=== PATIENT | female | born 1995 | race African-American/Black ===

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

== ENCOUNTER 2018-07-20 20:34 | Emergency (ER) | payer BC, MEDICAID ==
[2018-07-20 20:49] VITALS: BP 130/76
--- NOTE | 2018-07-21 00:46 | ER Document Report ---
ED General - General Chief Complaint: Fever Stated Complaint: POSSIBLE FEVER,NAUSEA Time Seen by Provider: 07/21/18 00:05 Primary Care Provider: CHENTE DAS DO [Primary Care Provider] - Follow up as needed Mode of Arrival: Ambulatory Information source: Patient TRAVEL OUTSIDE OF THE [place] IN LAST 30 DAYS: No - HPI Patient complains to provider of: Nasal congestion, weak, sore throat, fever Onset: Yesterday Onset/Duration: Sudden Quality of pain: No pain Severity: None Associated symptoms: Fever Exacerbated by: Denies Relieved by: Denies Similar symptoms previously: No Recently seen / treated by doctor: No Notes: 23-year-old -Italian female with onset of sore throat, nasal congestion, weakness, subjective fevers, nauseousness started yesterday. Daughter is also sick. No vomiting or diarrhea. - Related Data Allergies/Adverse Reactions: No Known Allergies Allergy (Verified 07/20/18 20:38) Past Medical History - General Information source: Patient - Social History Smoking Status: Never Smoker Chew tobacco use (# tins/day): No Drug Abuse: None Family History: Reviewed & Not Pertinent Patient has suicidal ideation: No Patient has homicidal ideation: No Renal/ Medical History: Denies: Hx Peritoneal Dialysis - Immunizations Hx Diphtheria, Pertussis, Tetanus Vaccination: Yes Review of Systems - Review of Systems Notes: Constitutional: Positive subjective fevers. No chills. EENT: No eye redness. No eye pain. No ear pain. No sore throat. Cardiovascular: No chest pain. No palpitations. Respiratory: No cough. No shortness of breath. No respiratory distress. Gastrointestinal: No abdominal pain. Positive for nausea negative for vomiting and diarrhea Genitourinary: Atraumatic. No lesions. No pain. No discharge. Musculoskeletal: Atraumatic. No swelling. No deformities. Skin: No rash or lesions. Lymphatic: No swollen lymph nodes. Neurologic: No headache. No syncope. Psychiatric: No suicidal or homicidal ideation. Physical Exam - Vital signs Vitals: Temp Pulse Resp BP Pulse Ox 98.8 F 113 H 17 130/76 H 99 07/20/18 20:48 07/20/18 20:48 07/20/18 20:48 07/20/18 20:48 07/20/18 20:48 - Notes Notes: General: Well-developed, well-nourished. In no acute distress. Non-toxic appearing. Cardiac: Well-perfused. Regular rate and rhythm. No murmurs, rubs, or gallops. Pulmonary: No respiratory distress. No cyanosis. Bilateral lung fiels are clear to auscultation. Abdominal: Non-distended. Non-rigid. Bowels sounds are present in all four quadrants. No guarding or rebound. HEENT: Head is atraumatic. Conjunctivae not reddened. No tearing. PERRL. EOMI. Orbits atraumatic. No periorbital swelling or erythema. Oropharynx is 1+ injected without exudates Neck: Supple. No adenopathy. No meningismus. Dermatologic: Warm with good turgor. No rash. Atraumatic. Chest: Atraumatic. No chest wall tenderness to palpation. Musculoskeletal: Moves all extremities well. No range of motion deficits. no muscular or joint tenderness. No paraspinal muscle tenderness. no midline spinal tenderness or step-off. Genitourinary: Examination deferred Neurologic: No gross neurologic deficits. Psychiatric: Normal mood. Course - Re-evaluation Re-evalutation: 07/21/18 00:45 Probable URI we will check a strep and a flu 07/21/18 01:31 Fluid strep are negative. Will discharge home with URI instructions. Also prescription for Bromfed-DM - Vital Signs Vital signs: Temp Pulse Resp BP Pulse Ox 98.8 F 113 H 17 130/76 H 99 07/20/18 20:48 07/20/18 20:48 07/20/18 20:48 07/20/18 20:48 07/20/18 20:48 Discharge - Discharge Clinical Impression: Upper respiratory infection Qualifiers: URI type: unspecified URI Qualified Code(s): J06.9 - Acute upper respiratory infection, unspecified Condition: Good Disposition: HOME, SELF-CARE Instructions: Upper Respiratory Illness ([facility]) Prescriptions: D-Methorphan Hb/P-Epd HCl/Bpm [Bromfed-DM Cough Syrup] 5 ml PO Q4HP PRN #120 ml PRN Reason: Referrals: CHENTE DAS DO [Primary Care Provider] - Follow up in 3-5 days
[2018-07-21 01:18] LABS: A TYPE INFLUENZA AG NEGATIVE (NEGATIVE); B INFLUENZA AG NEGATIVE (NEGATIVE)
== END 2018-07-21 01:49 | disposition home or self-care (01) ==
LOC: ER 20:34
DX: J06.9 Acute upper respiratory infection, unspecified (principal); R09.81 Nasal congestion; R53.1 Weakness; J02.9 Acute pharyngitis, unspecified; R11.0 Nausea
CPT/HCPCS: 87070; 87804; 87880; 99283

== ENCOUNTER 2018-12-04 16:56 | Emergency (ER) | payer BC ==
--- NOTE | 2018-12-04 18:36 | ER Document Report ---
ED Medical Screen (RME) - General Chief Complaint: Headache >24 hrs old Stated Complaint: HEADACHE Time Seen by Provider: 12/04/18 18:28 Primary Care Provider: CHENTE DAS DO [Primary Care Provider] - Follow up as needed Mode of Arrival: Ambulatory Information source: Patient Notes: 23-year-old female presented to ED for complaint of headaches for as long as she can remember. She states she has sharp pains in either the front of the back of her head almost daily sometimes every other day. She states she is on control that she does not have. Is except for maybe 1 day of spotting a month. She states she takes either ibuprofen or Excedrin for her headaches. She states sometimes she has worse headaches when she is on a lot of phone calls. 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 She states she does not smoke but she does drink about monthly. She states she is never followed up with a neurologist for her headaches. I offered to treat her with Compazine Benadryl and Toradol but she stated no she wants a more thorough exam and to find out why she is having these headaches. Patient is alert oriented respirations regular and unlabored no obvi ous neurological deficits. She is speaking in full sentences. I have greeted and performed a rapid initial assessment of this patient. A comprehensive ED assessment and evaluation of the patient, analysis of test results and completion of medical decision making process will be conducted by an additional ED providers. Dictation of this chart was performed using voice recognition software; therefore, there may be some unintended grammatical errors. TRAVEL OUTSIDE OF THE [place] IN LAST 30 DAYS: No - Related Data Allergies/Adverse Reactions: No Known Allergies Allergy (Verified 12/04/18 17:13) Past Medical History Renal/ Medical History: Denies: Hx Peritoneal Dialysis - Immunizations Hx Diphtheria, Pertussis, Tetanus Vaccination: Yes Physical Exam - Vital signs Vitals: Temp Pulse Resp BP Pulse Ox 98.1 F 66 16 115/78 99 12/04/18 18:00 12/04/18 18:00 12/04/18 18:00 12/04/18 18:00 12/04/18 18:00 Course - Vital Signs Vital signs: Temp Pulse Resp BP Pulse Ox 98.1 F 66 16 115/78 99 12/04/18 18:00 12/04/18 18:00 12/04/18 18:00 12/04/18 18:00 12/04/18 18:00 Doctor's Discharge - Discharge Referrals: CHENTE DAS DO [Primary Care Provider] - Follow up as needed
[2018-12-04 19:05] LABS: APPEARANCE,URINE SLIGHTLY-CLOUDY; BILIRUBIN,URINE NEGATIVE (NEGATIVE); COLOR,URINE YELLOW; GLUCOSE, URINE NEGATIVE (NEGATIVE); KETONES,URINE NEGATIVE (NEGATIVE); LEUKOCYTE ESTERASE,URINE NEGATIVE (NEGATIVE); NITRITE,URINE NEGATIVE (NEGATIVE); PROTEIN,URINE NEGATIVE (NEGATIVE); URINE SPECIFIC GRAVITY 1.024
--- NOTE | 2018-12-04 21:51 | ER Document Report ---
ED Headache - General Chief Complaint: Headache >24 hrs old Stated Complaint: HEADACHE Time Seen by Provider: 12/04/18 18:28 Primary Care Provider: RADHA HERRERA MD [ACTIVE STAFF] - Follow up as needed Mode of Arrival: Ambulatory Notes: Patient is a 23-year-old female that comes to the emergency department for chief complaint of frequent headaches. She states that she was sent home from work because of a headache that she developed, she states that it felt like a sharp pain and a band over the front of her head. She states she also has tightness in her neck. She states she has headaches like this frequently, they do go away with ibuprofen or Excedrin, she states she just wants to be checked out. She denies photophobia, phonophobia, focal numbness or weakness, or any particular h eadache at this time. She denies , she denies any daily medications, she denies smoking, recreational drugs, or any diagnosed medical problems. TRAVEL OUTSIDE OF THE [place] IN LAST 30 DAYS: No - Related Data Allergies/Adverse Reactions: No Known Allergies Allergy (Verified 12/04/18 17:13) Past Medical History - General Information source: Patient - Social History Smoking Status: Never Smoker Frequency of alcohol use: Occasional Drug Abuse: None Lives with: Family Family History: Reviewed & Not Pertinent Patient has suicidal ideation: No Patient has homicidal ideation: No Renal/ Medical History: Denies: Hx Peritoneal Dialysis Surgical Hx: Negative - Immunizations Hx Diphtheria, Pertussis, Tetanus Vaccination: Yes Review of Systems - Review of Systems Constitutional: No symptoms reported EENT: No symptoms reported Cardiovascular: No symptoms reported Respiratory: No symptoms reported Gastrointestinal: No symptoms reported Genitourinary: No symptoms reported Female Genitourinary: No symptoms reported Musculoskeletal: See HPI Skin: No symptoms reported Hematologic/Lymphatic: No symptoms reported Neurological/Psychological: See HPI Physical Exam - Vital signs Vitals: Temp Pulse Resp BP Pulse Ox 98.1 F 66 16 115/78 99 12/04/18 18:00 12/04/18 18:00 12/04/18 18:00 12/04/18 18:00 12/04/18 18:00 - Notes Notes: GENERAL: Alert, interacts well. No acute distress. HEAD: Normocephalic, atraumatic. EYES: Pupils equal, round, and reactive to light. Extraocular movements intact. ENT: Oral mucosa moist, tongue midline. Oropharynx unremarkable. Airway patent. NECK: Full range of motion. Supple. Trachea midline. LUNGS: Clear to auscultation bilaterally, no wheezes, rales, or rhonchi. No respiratory distress. HEART: Regular rate and rhythm. No murmur ABDOMEN: Soft, non-tender. Non-distended. Bowel sounds present in all 4 quadrants. GENITOURINARY: Deferred EXTREMITIES: Moves all 4 extremities spontaneously. No edema, normal radial and dorsalis pedis pulses bilaterally. No cyanosis. BACK: no cervical, thoracic, lumbar midline tenderness. There is paracervical and trapezius muscle tenderness bilaterally which is mild. No saddle anesthesia, normal distal neurovascular exam. Moves all extremities in full range of motion. NEUROLOGICAL: Alert and oriented x3. Normal speech. Cranial nerves II through XII grossly intact. PSYCH: Normal affect, normal mood. SKIN: Warm, dry, normal turgor. No rashes or lesions noted. Course - Re-evaluation Re-evalutation: On my evaluation patient does not have a headache. She does have some muscle tenderness in the paracervical and trapezius muscles bilaterally, range of motion is still intact, no neurological deficits, she is talkative, smiling, well-appearing. I did discuss imaging of the brain but this was declined by the patient, she states she wants primary care follow-up for this. She states she does want treatment options for her headaches. Her descriptions and exam are most suggestive of tension headaches. I have a very low suspicion of any intracranial abnormality based on her well appearance and lack of current headache. She will be treated with muscle relaxer, Fioricet as needed, and primary care referral was given as requested. Discussed return precautions. Patient states satisfaction and agreement. - Vital Signs Vital signs: Temp Pulse Resp BP Pulse Ox 98.3 F 80 17 109/75 99 12/04/18 22:10 12/04/18 22:10 12/04/18 22:10 12/04/18 22:10 12/04/18 22:10 - Laboratory Laboratory results interpreted by me: 12/04/18 18:41 Urine Blood SMALL H Urine Urobilinogen 2.0 H Urine Ascorbic Acid 40 H Discharge - Discharge Clinical Impression: Frequent headaches Condition: Stable Disposition: HOME, SELF-CARE Additional Instructions: Your evaluation is very suggestive of tension headaches. For the pain in your neck I recommend heat, stretching, massage, the muscle relaxer, and [id number] anti-inflammatories like you have been taking. If you develop a tension headache take the Fioricet prescribed as needed. Follow-up with primary care for additional evaluation and management of headaches, see referral and call for your follow-up. Return if you worsen including severe/returned headache, vomiting, fever, or any other concerning or worsening symptoms. Prescriptions: Butalb/Acetaminophen/Caffeine [Fioricet (50-325-40 mg) Tablet] 1 tab PO Q4HP PRN #20 tab PRN Reason: Methocarbamol [Robaxin 500 mg Tablet] 500 mg PO QID PRN #20 tablet PRN Reason: Forms: Return to Work Referrals: RADHA HERRERA MD [ACTIVE STAFF] - Follow up as needed
[2018-12-04 22:11] VITALS: BP 109/75
== END 2018-12-04 22:11 | disposition home or self-care (01) ==
LOC: ER 16:56
DX: R51 Headache (principal); R29.898 Other symptoms and signs involving the musculoskeletal system
CPT/HCPCS: 81001; 81025; 99283